=== PATIENT | female | born 1985 | race Caucasian/White ===

== ENCOUNTER 2023-09-16 10:57 | Emergency (ER) | payer SELFPAY ==
[2023-09-16 12:32] LABS: SARS-CoV-2 NAA Rapid Test Not Detected (NotDetected)
== END 2023-09-16 12:56 | disposition home or self-care (01) ==
LOC: ERS 10:57
DX: J10.1 Influenza due to other identified influenza virus with other respiratory manifestations (principal); F17.210 Nicotine dependence, cigarettes, uncomplicated
CPT/HCPCS: 99283